=== PATIENT | female | born 1945 | race American Indian/Alaskan Native ===

== ENCOUNTER 2021-11-20 14:15 | Outpatient (CLI) | payer MEDICARE, SELFPAY ==
--- NOTE | 2021-11-20 14:33 | MM_ITS ---
WS: [id number] BILATERAL SCREENING 3D TOMOSYNTHESIS DIGITAL MAMMOGRAM WITH CAD HISTORY: SCREENING COMPARISON: None available. Bilateral CC and MLO views submitted. Computer aided detection analyzed. Breast composition: There are scattered areas of fibroglandular density. No suspicious masses, microc alcifications or architectural distortion. Benign calcifications RIGHT breast. No persistent asymmetr ies. MM/[place] [id number] IMPRESSION: BI-RADS: 2-Benign FOLLOW UP: 1 Year Follow-up
--- NOTE | 2021-11-20 15:42 | XR_ITS ---
WS: [id number] XR chest 2V* [id number] REASON FOR EXAM: COUGH FINDINGS: Chest is unchanged compared to 08/17/2017. Mild tortuosity the thoracic aorta without aneurysmal dilatation. The heart size is normal. Calcified granulomatous disease in both hemithoraces. No acute pulmonary parenchymal or pleural abnormality. Moderate to severe change of degenerative spondylosis in the mid and lower thoracic spine. Mild wedge -shaped compression deformity of T12. XR/XR chest 2V* [id number] IMPRESSION: No acute chest abnormality.
== END 2021-11-20 14:16 | disposition home or self-care (01) ==
PROVIDERS: PCP Family Medicine; Visit Provider Family Medicine
DX: Z12.31 Encounter for screening mammogram for malignant neoplasm of breast (principal); R05.9 Cough, unspecified
CPT/HCPCS: 71046; 77063; 77067

== ENCOUNTER 2021-12-19 12:22 | Outpatient (CLI) | payer MEDICARE, SELFPAY ==
--- NOTE | 2021-12-19 12:45 | CT_ITS ---
WS: [id number] CT ABDOMEN PELVIS TECHNIQUE: Contrast-enhanced CT of the abdomen and pelvis with coronal and sagittal reformatted image s. CLINICAL INFORMATION: ABD MASS COMPARISON: None. DLP: 1266.[address] scans at [facility] use at least one of these dose optimization techniques: automated e xposure control; mA and/or kV adjustment per patient size (includes targeted exams where dose is matc hed to clinical indication); or iterative reconstruction. FINDINGS: Diffuse fatty infiltration of the liver. Incidental cysts RIGHT hepatic lobe. Normal portal vein and splenic vein. Fatty atrophy of the pancreas. Lung bases are well aerated. Normal GE junction. Normal spleen. Adrenal glands are normal. Fatty atrophy of the pancreas. Celiac and SMA are patent. Normal c aliber abdominal aorta. Mild aortic calcification. Soft tissue mass in the tail of the pancreas suspicious for neoplasm measuring 3.2 x 1.5 CM. This inv olves the tail the pancreas and extends to the splenic hilum. This can be further evaluated with MRI without and with gadolinium enhancement. No pancreatic ductal dilatation. This involves the LEFT sple jose miguel vein which is compressed and likely partially thrombosed Adrenal glands are normal. Normal renal parenchymal enhancement. No hydronephrosis. Tiny renal lesion anterior RIGHT kidney too small to definitively characterize measuring 3.6 mm. Additional exophytic renal lesion LEFT kidney likely cortical cyst measuring 7 mm. Normal sigmoid colon. Moderate colonic constipation. No evidence of high-grade small or large bowel o bstruction. No periaortic lymphadenopathy. Hemangioma L3 vertebral body unchanged since 2019 CT/CT abdomen pelvis w con* [id number] IMPRESSION: 1. Enhancing soft tissue lesion involving the pancreatic tail measuring 3.2 x 1.5 cm suspicious for neoplasm. This can be further evaluated with MRI without and with gadolinium enhancement. This extends to the splenic hilum and involves the LEFT splenic vein likely partially thrombosed. No pancreatic ductal dilata tion. 2. No abdominal or pelvic lymphadenopathy. No inguinal lymphadenopathy. 3. Incidental cysts in the RIGHT hepatic lobe. 4. Tiny RIGHT renal lesion too small to characterize. Small LEFT renal cortica l cyst. 5. Stable hemangioma L3 vertebral body.
[2021-12-19] MEDS: iohexol 300 mg/mL 50 mL Btl PO (15:44)
[2021-12-19] MEDS: iohexol 350 mg/mL 100 mL Btl IV (15:44)
[2021-12-19 15:58] LABS: Blood Urea Nitrogen 18 mg/dL (8-23)
== END 2021-12-19 12:23 | disposition home or self-care (01) ==
LOC: RAD 12:26
PROVIDERS: PCP Family Medicine; Visit Provider Family Medicine
DX: R19.00 Intra-abdominal and pelvic swelling, mass and lump, unspecified site (principal); R16.0 Hepatomegaly, not elsewhere classified; R74.8 Abnormal levels of other serum enzymes; N28.1 Cyst of kidney, acquired; D18.09 Hemangioma of other sites
CPT/HCPCS: 74177; 82565; 84520

== ENCOUNTER → 2022-01-10 16:28 | Outpatient (BNVA) | payer MEDICARE, SELFPAY | PROVIDERS: PCP Family Medicine; Visit Provider Family Medicine | DX: N39.0 Urinary tract infection, site not specified (principal) | CPT/HCPCS: 81000; 81002; 87086 ==

== ENCOUNTER 2022-04-16 15:01 | Oncology outpatient (recurring) (ONCR) | payer MEDICARE, SELFPAY ==
[2022-04-21 08:23] LABS: Serotonin Whole Blood 52 ng/mL (56-244)
[2022-04-28 11:48] LABS: Chromogranin A LC/MS/MS 163 ng/mL (ADULTS: <311)
[2022-04-28 18:44] LABS: Gastrin 23 pg/mL (< OR = 100)
== END 2022-04-17 23:59 | disposition home or self-care (01) ==
PROVIDERS: PCP Family Medicine; Visit Provider Internal Medicine Hematology & Oncology
DX: D3A.8 Other benign neuroendocrine tumors (principal)
CPT/HCPCS: 82941; 84260; 86316; 99204

== ENCOUNTER 2022-04-29 08:32 | Oncology outpatient (recurring) (ONCR) | payer MEDICARE, SELFPAY ==
[2022-05-03 17:27] LABS: 24 Hour Urine Volume 1000 mL; 5-HIAA, 24 Hour Urine 3.6 mg/24 h (<=6.0)
== END 2022-05-17 23:59 | disposition home or self-care (01) ==
PROVIDERS: PCP Family Medicine; Visit Provider Internal Medicine Hematology & Oncology
DX: D3A.8 Other benign neuroendocrine tumors (principal)
CPT/HCPCS: 83497

== ENCOUNTER 2022-09-03 13:27 | Oncology outpatient (recurring) (ONCR) | payer MEDICARE, SELFPAY ==
[2022-09-03 14:21] LABS: Basophils % 0.4 %; Eosinophils # 0.1 10^3/uL (0.0-0.8); Hematocrit 37.9 % (37.0-47.0); Hemoglobin 12.6 g/dL (11.5-15.3); Lymphocytes # 1.7 10^3/uL (0.8-4.8); Lymphocytes % 23.2 %; Mean Corpuscular HGB Conc 33.2 g/dL (30.0-36.0); Mean Corpuscular Hemoglobin 29.9 pg (28.0-34.0); Mean Platelet Volume 9.1 fL (7.4-10.4); Monocytes # 0.6 10^3/uL (0.2-0.9); Monocytes % 8.6 %; Neutrophils # 4.76 10^3/uL (1.8-7.7); Neutrophils % 66.4 %; Nucleated Red Blood Cells % 0 %; Platelet Count 196 10^3/cmm (130-400); Red Blood Count 4.21 10^6/uL (4.1-5.3); Red Cell Distribution Width 13.8 % (12.1-15.1); White Blood Count 7.2 10^3/uL (4.0-10.0)
[2022-09-03 14:42] LABS: Alanine Aminotransferase 22 U/L (0-33); Alkaline Phosphatase 125 U/L (35-105); Aspartate Amino Transferase 21 U/L (0-32); Blood Urea Nitrogen 16 mg/dL (8-23); Calcium 9.9 mg/dL (8.5-10.5); Carbon Dioxide 29 mmol/L (22-29); Chloride 93 mmol/L (98-107); Globulin 3.8 g/dL (1.3-4.6); Glucose 99 mg/dL (65-115); Osmolality Calculated 277 mOsm/kg (285-295); Sodium 133 mmol/L (136-145); Total Bilirubin 0.3 mg/dL (0.15-1.2); Total Protein 7.8 g/dL (6.6-8.7)
== END 2022-09-17 23:59 | disposition home or self-care (01) ==
PROVIDERS: PCP Family Medicine; Visit Provider Internal Medicine Hematology & Oncology
DX: C7A.098 Malignant carcinoid tumors of other sites (principal); D18.09 Hemangioma of other sites; Z87.891 Personal history of nicotine dependence
CPT/HCPCS: 36415; 80053; 85025; 99214

== ENCOUNTER 2022-11-09 05:34 | Outpatient (CLI) | payer MEDICARE, SELFPAY ==
--- NOTE | 2022-11-09 | PETR_ITS ---
PROCEDURE INFORMATION: Exam: PET/CT Skull Base to Mid-thigh Exam date and time: 11/09/2022 8:56 AM Age: 77 years old Clinical indication: Condition or disease; Condition/disease: Other benign neuroedncrine tumors LABS AND CLINICAL REPORTS: Glucose: 87 mg/dl Treatment strategy for malignancy (PET staging): Initial Staging (PI) TECHNIQUE: Imaging protocol: Following at least four-hour fasting and following the injection of F-18-FDG, low dose CT images were obtained. Then, PET images were obtained. Attenuation corrected images were constructed using the CT scan. Fused images of PET and CT were reviewed. The standardized uptake values (SUV) reported below are maximum values within a region of interest, expressed in gm/ml. Exam includes orbital meatal line to mid-thigh. Radiopharmaceutical: 10.18 mCi F-18 FDG (Fluorodeoxyglucose), IV. Time of imaging post radiopharmaceutical administration: 1 hour Injection site: Right hand COMPARISON: PT PET Scan 05/11/2022 11:25 AM FINDINGS: Brain: Visualized brain has normal physiologic uptake. Pharynx: No abnormal uptake. Larynx: No abnormal uptake. Lungs, pleura and trachea: No abnormal uptake. Heart: Normal physiologic uptake. Mediastinal space: No abnormal uptake. Liver: No abnormal uptake. A similar non radiotracer avid low-density lesion measuring 1.4 cm in diameter on series 3, image 67 within the right liver lobe is noted with a density of simple fluid. Gallbladder and bile ducts: No abnormal uptake. Pancreas: Uptake within the known pancreatic tail mass is present, SUV max 7.1 on series 4, image 75 (previously 8.0). This mass is similar in size compared to the prior PET-CT although assessment is limited without intravenous contrast, measuring approximately 2.9 x 1.9 cm in the axial plane on series 3, image 77. Spleen: No abnormal uptake. Adrenal glands: No abnormal uptake. Kidneys and ureters: Normal physiologic uptake. Stomach and bowel: No abnormal uptake. Reproductive: The uterus is not identified, likely surgically absent. Vasculature: No abnormal uptake. There are diffuse atherosclerotic changes. Lymph nodes: No abnormal uptake. No lymphadenopathy in the head, neck, chest, abdomen, pelvis, and extremities. Bones/joints: Degenerative spondylosis in the spine is noted. Mild degenerative uptake in the right acromioclavicular joint is present, SUV max 4.0. Non radiotracer avid vertically oriented striations in lucency in the L3 vertebral body is noted compatible with a benign hemangioma. Soft tissues: No abnormal uptake in the visualized head, neck, chest, abdomen, pelvis, and extremities. METRICS: Mediastinal blood pool: SUV max 2.6 Liver uptake: SUV max 3.0 [facility] IN[facility] [id number] IMPRESSION: 1. Similar size of the pancreatic tail mass compared with the prior PET-CT with persistent abnormal but slightly increased uptake consistent with known malignancy compared with the prior exam (SUV max 7.1, previously 8.0). 2. No additional areas of hypermetabolic malignancy are identified. 3. Similar simple appearing cyst within the liver. 4. Additional nonurgent findings as detailed above.
== END 2022-11-09 05:35 | disposition home or self-care (01) ==
PROVIDERS: PCP Family Medicine; Visit Provider Internal Medicine Hematology & Oncology
DX: D3A.8 Other benign neuroendocrine tumors (principal); K76.89 Other specified diseases of liver
CPT/HCPCS: 78815; A9552

== ENCOUNTER → 2022-12-02 11:02 | Outpatient (BNVA) | payer MEDICARE, SELFPAY | PROVIDERS: PCP Family Medicine; Visit Provider Clinical Nurse Specialist Adult Health | DX: R30.0 Dysuria (principal); R41.0 Disorientation, unspecified; F03.90 Unspecified dementia, unspecified severity, without behavioral disturbance, psychotic disturbance, mood disturbance, and anxiety | CPT/HCPCS: 81000; 87086 ==

== ENCOUNTER → 2023-09-16 14:14 | Outpatient (BNVA) | payer MEDICARE, SELFPAY | PROVIDERS: PCP Family Medicine; Visit Provider Family Medicine | DX: R26.81 Unsteadiness on feet (principal); Z51.81 Encounter for therapeutic drug level monitoring; D3A.8 Other benign neuroendocrine tumors; E11.9 Type 2 diabetes mellitus without complications; E55.9 Vitamin D deficiency, unspecified; E03.9 Hypothyroidism, unspecified; R25.2 Cramp and spasm; M25.562 Pain in left knee; I10 Essential (primary) hypertension | CPT/HCPCS: 80053; 82306; 83036; 83690; 83735; 84443; 84550; 85025; 86141 ==

== ENCOUNTER → 2024-02-09 15:33 | Outpatient (BNVA) | payer MEDICARE, SELFPAY | PROVIDERS: PCP Family Medicine; Visit Provider Clinical Nurse Specialist Adult Health | DX: J20.9 Acute bronchitis, unspecified (principal); Z79.899 Other long term (current) drug therapy | CPT/HCPCS: 87426 ==

== ENCOUNTER 2024-05-11 11:57 | Outpatient (CLI) | payer MEDICARE, SELFPAY ==
--- NOTE | 2024-05-11 12:05 | XR_ITS ---
WS: [id number] LEFT KNEE: 3 VIEW(S) TECHNIQUE: AP, oblique(s) and lateral. HISTORY: Left knee pain COMPARISON: 07/17/2017 Interval progression of degenerative changes and loss of joint space involving the knee. There is now bone upon bone in the medial compartment with sclerosis and subchondral erosions. Erosions on both s ides of the medial joint space. Small marginal osteophytes. Moderate narrowing of the lateral and pat ellofemoral joint space. No significant joint effusion. No fractures. XR/XR knee LT 3V* [id number] IMPRESSION: 1. Severe medial compartment arthropathy. Progression of loss of joint space a nd subchondral erosion since 2017. 2. 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
== END 2024-05-11 11:58 | disposition home or self-care (01) ==
PROVIDERS: PCP Family Medicine; Visit Provider Family Medicine
DX: M17.12 Unilateral primary osteoarthritis, left knee (principal)
CPT/HCPCS: 73562

== ENCOUNTER → 2024-09-17 11:35 | Outpatient (BNVA) | payer MEDICARE, SELFPAY | PROVIDERS: PCP Family Medicine; Visit Provider Family Medicine | DX: Z51.81 Encounter for therapeutic drug level monitoring (principal); Z00.00 Encounter for general adult medical examination without abnormal findings; R73.03 Prediabetes | CPT/HCPCS: 80053; 83036; 85025 ==